=== PATIENT | male | born 1930 | race Caucasian/White ===

== ENCOUNTER → 2016-11-09 | Outpatient (CLI) | payer OTHER, MEDICARE ==
[2016-11-09 14:47] LABS: CALCIUM 9.1 mg/dL (8.7-10.7); SERUM ALBUMIN 4.1 g/dL (3.5-4.8)
== END ==
LOC: LAB 09:41
PROVIDERS: ATTEND Physician Assistant Medical
DX: M54.89 Other dorsalgia (principal); R10.84 Generalized abdominal pain
CPT/HCPCS: 80053

== ENCOUNTER → 2016-11-16 | Outpatient (CLI) | payer OTHER, MEDICARE ==
--- NOTE | 2016-11-16 12:55 | DI ---
CT ABDOMEN SCAN WITHOUT IV CONTRAST, 11/16/2016 10:44 AM : Clinical History: CVA tenderness. Previous Exam: None at this facility. Scans are performed from the lower lung bases through the liver and kidneys without IV contrast. Sagi ttal and coronal reformatted images are generated. The lung bases are clear. Calcifications are present in the right coronary artery. The liver is ventura l. The gallbladder is grossly normal. There is no abnormality of the spleen, pancreas, and adrenal gl ands. Both kidneys are normal in size, shape, position and contour. There is no hydronephrosis or hyd roureter. There are multiple calculi present in the right kidney with the largest being located in an upper pole calyx and measures about 10 mm in diameter. There are small 2-3 mm calculi present in low er pole calyces of the left kidney. No ureteral calculi are visualized. There are no abnormal retrocr ural or periaortic nodes. No ascites is present. READING: Bilateral nonobstructing renal calculi. The largest calculus is in an upper pole calyx of the right k idney and it measures approximately 10 mm in diameter. There is no hydroureter and there are no urete ral calculi present. CT PELVIS SCAN WITHOUT IV CONTRAST, 11/16/2016 10:44 AM : Clinical History: See above. Previous Exam: None. Scans are performed from the inferior margin of the liver and kidneys to the symphysis pubis without IV contrast. There is no free fluid collection and there is no adenopathy. The appendix is not visualized but ther e is no inflammatory mass either in the cecal tip or in the right lower quadrant. The small bowel, te rminal ileum, and ileocecal valve are normal. The colon is also normal. There is a very small umbilic al hernia through which only mesenteric fat has herniated. READING: Normal CT pelvis scan.
== END ==
LOC: CT 10:40
PROVIDERS: ATTEND Physician Assistant Medical
DX: M54.5 Low back pain (principal); M54.6 Pain in thoracic spine; N20.0 Calculus of kidney
CPT/HCPCS: 74176

== ENCOUNTER → 2017-04-03 | Outpatient (CLI) | payer OTHER, MEDICARE ==
[2017-04-03 14:19] LABS: HEMOGLOBIN 16.4 g/dL (14.0-18.0); MEAN CORPUSCULAR HEMOGLOBIN 30.9 PG (27-31); MEAN CORPUSCULAR HGB CONC 32.8 g/dL (33-37); MEAN CORPUSCULAR VOLUME 94.2 FL (80-90); MEAN PLATELET VOLUME 10.2 FL (7.4-12.2); RED BLOOD COUNT 5.31 10^6/uL (4.70-6.10)
== END ==
LOC: LAB 13:17
PROVIDERS: ATTEND Physician Assistant Medical
DX: D45 Polycythemia vera (principal)
CPT/HCPCS: 36415; 85027; 99195